=== PATIENT | female | born 1960 | race Caucasian/White ===

== ENCOUNTER → 2016-08-20 | Day surgery (SDC) | payer OTHER ==
[2016-08-20 08:00] LABS: HCT 40.9 % (37.0-47.0); HGB 13.6 g/dl (12.5-16.0); MCH 30.9 pg (25.0-31.0); MCHC 33.3 g/dL (32.0-36.0); RBC 4.4 M/uL (4.20-5.40); RDW 12.9 % (11.5-14.0); WBC 6.6 K/uL (4.0-10.5)
[2016-08-20 08:20] LABS: ALBUMIN 4.6 g/dL (3.5-5.0); BILIRUBIN - TOTAL 0.5 mg/dL (0.1-1.0); CREATININE 0.8 mg/dL (0.5-1.0); GLOBULIN (CALCULATION) 3.1 g/dL (2.2-4.2); POTASSIUM 3.3 mmol/L (3.5-5.1); TOTAL PROTEIN 7.7 g/dL (6.4-8.3)
== END | disposition home or self-care (01) ==
LOC: FAS 07:29
PROVIDERS: Surgery
DX: Z12.11 Encounter for screening for malignant neoplasm of colon (principal); K29.50 Unspecified chronic gastritis without bleeding; F32.9 Major depressive disorder, single episode, unspecified; Z79.899 Other long term (current) drug therapy; E03.9 Hypothyroidism, unspecified; Z98.890 Other specified postprocedural states; F17.210 Nicotine dependence, cigarettes, uncomplicated; Z98.51 Tubal ligation status; Z90.710 Acquired absence of both cervix and uterus
CPT/HCPCS: 43239; G0121; 36415; 80053; 88305; J2704

== ENCOUNTER → 2016-08-26 | Day surgery (SDC) | payer OTHER | END | disposition home or self-care (01) | LOC: FAS 09:47 | DX: M75.121 Complete rotator cuff tear or rupture of right shoulder, not specified as traumatic (principal); M75.41 Impingement syndrome of right shoulder; M19.011 Primary osteoarthritis, right shoulder; F32.9 Major depressive disorder, single episode, unspecified; E03.9 Hypothyroidism, unspecified; F17.210 Nicotine dependence, cigarettes, uncomplicated; Z90.710 Acquired absence of both cervix and uterus; Z98.51 Tubal ligation status; Z79.899 Other long term (current) drug therapy; Z98.890 Other specified postprocedural states | CPT/HCPCS: C1713; J1100; J1170; J1885; J2405; J2704; J2710; J3010 ==

== ENCOUNTER 2020-04-15 16:51 | Emergency (ER) | payer OTHER ==
[~2020-04-15 16:51] MED LIST: AMOXICILLIN500 M1 PO; BACTRIM DS TAB1 EACH PO; BIAXIN500 MG PO; LEVOTHYROXINE100 MCG PO; LEXAPRO 10MG TA10 MG PO; OMEPRAZOLE 20MG20 MG PO; PHENERGAN12.5 M1 PO; PHENERGAN25 M1 PO; PREVACID30 M1 PO; PYRIDIUM200 MG PO; REQUIP0.25 MG PO; SYNTHROID75 MCG PO; ZOFRAN8 MG PO
[2020-04-15 17:52] LABS: BASOPHIL 0.5 % (0-2); EOSINOPHIL 0.9 % (0-5); HCT 40.7 % (37.0-47.0); HGB 13.1 g/dl (12.5-16.0); LYMPHOCYTE 33.3 % (15-48); MCH 30.1 pg (25.0-31.0); MCHC 32.2 g/dL (32.0-36.0); MCV 93.6 fL (78.0-100.0); MONOCYTE 4.4 % (0-12); NEUTROPHIL 60.4 % (41-80); NRBC 0; PLT 204 K/uL (150-400); RBC 4.35 M/uL (4.20-5.40); WBC 7.9 K/uL (4.0-10.5)
[2020-04-15 18:01] LABS: ALBUMIN 4.3 g/dL (3.4-5.0); BILIRUBIN - TOTAL 0.3 mg/dL (0.2-1.0); BUN/CREAT RATIO (CALC) 8.3 RATIO; CREATININE 0.72 mg/dL (0.51-0.95); GLOBULIN (CALCULATION) 3.2 g/dL; POTASSIUM 4.1 mmol/L (3.5-5.1); TOTAL PROTEIN 7.5 g/dL (6.4-8.2)
[2020-04-15 18:02] LABS: AMPHETAMINES NEGATIVE (NEGATIVE); BARBITURATES NEGATIVE (NEGATIVE); ECSTASY (MDMA) NEGATIVE (NEGATIVE); MARIJUANA (THC) NEGATIVE (NEGATIVE); METHADONE NEGATIVE (NEGATIVE); OPIATES NEGATIVE (NEGATIVE); OXYCODONE NEGATIVE (NEGATIVE)
== END 2020-04-15 21:03 | disposition other institution (70) ==
LOC: FER 16:51
PROVIDERS: Physician Assistant
DX: S22.41XA Multiple fractures of ribs, right side, initial encounter for closed fracture (principal); S60.812A Abrasion of left wrist, initial encounter; F10.129 Alcohol abuse with intoxication, unspecified; F17.200 Nicotine dependence, unspecified, uncomplicated; Y90.6 Blood alcohol level of 120-199 mg/100 ml; Z20.822 Contact with and (suspected) exposure to COVID-19; X78.0XXA Intentional self-harm by sharp glass, initial encounter; W19.XXXA Unspecified fall, initial encounter
CPT/HCPCS: 36415; 71101; 80053; 80305; 85025; G0480; U0002

== ENCOUNTER 2020-07-29 11:50 | Emergency (ER) | payer OTHER ==
[2020-07-29] MEDS ORDERED: CLOBETASOL PROP60 G2 TOP (13:49)
[2020-07-31 16:10] LABS: LYME IGG/IGM AB <0.91 ISR (0.00-0.90)
== END 2020-07-29 14:00 | disposition home or self-care (01) ==
LOC: FER 11:50
PROVIDERS: Emergency Medicine
DX: S70.361A Insect bite (nonvenomous), right thigh, initial encounter (principal); M32.9 Systemic lupus erythematosus, unspecified; F17.210 Nicotine dependence, cigarettes, uncomplicated; Z88.8 Allergy status to other drugs, medicaments and biological substances; Z88.7 Allergy status to serum and vaccine; W57.XXXA Bitten or stung by nonvenomous insect and other nonvenomous arthropods, initial encounter
CPT/HCPCS: 86618; 99283

== ENCOUNTER 2021-03-13 11:50 | Emergency (ER) | payer OTHER ==
[~2021-03-13 11:50] MED LIST changes: +CLOBETASOL PROP60 G2 TOP
[2021-03-13 15:35] LABS: CORONAVIRUS 2019 SARS-COV-2 NEGATIVE (NEGATIVE); INFLUENZA A NAA NEGATIVE (NEGATIVE)
== END 2021-03-13 16:31 | disposition home or self-care (01) ==
LOC: FER 11:50
PROVIDERS: Physician Assistant
DX: R21 Rash and other nonspecific skin eruption (principal); R05.9 Cough, unspecified; F17.210 Nicotine dependence, cigarettes, uncomplicated; Z20.822 Contact with and (suspected) exposure to COVID-19; Z88.8 Allergy status to other drugs, medicaments and biological substances
CPT/HCPCS: 99283; U0002